=== PATIENT | female | born 1955 | race Caucasian/White ===

== ENCOUNTER 2021-05-15 00:18 | Emergency (ER) | payer OTHER ==
--- NOTE | 2021-05-15 00:27 | EDM.PDOC ---
ED HPI GENERAL MEDICAL PROBLEM - General Chief Complaint: Genitourinary Problem Stated Complaint: POSS UTI Time Seen by Provider: 05/15/21 00:32 Source of Information: Reports: Patient, Family (spouse) History Limitations: Reports: No Limitations - History of Present Illness INITIAL COMMENTS - FREE TEXT/NARRATIVE: 65-year-old female presents to the ED with acute onset of lower urinary tract infection. Continues to have dysuria urgency and frequency. She has a component of terminal dysuria. She has not seen any gross hematuria. She cannot remember the last time she had a urinary tract infection. She states she did feel some sense of urgency over the last 2 to 3 days but no dysuria until the last 12 hours. Unable to sleep due to the continuous irritation. She denie s any back or flank pain. Denies any nausea vomiting or fever. Onset: Sudden Onset Date: 05/14/21 Onset Time: 16:00 Duration: Hour(s):, Getting Worse, Waxing/Waning (Constant feeling of need to void with urgency but every 30 to 40 minutes.) Location: Reports: Abdomen (Lower abdominal pressure discomfort with urinary frequency) Quality: Reports: Ache, Pressure Severity: Moderate Improves with: Reports: None Worsens with: Reports: Other (Terminal dysuria at the end of voiding.) Context: Reports: Other (Spontaneous occurrence). Denies: Activity, Exercise, Lifting, Sick Contact, Trauma Associated Symptoms: Reports: No Other Symptoms. 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: Other (see below) Bladder Pain Score (Numeric/FACES): 6 - Related Data Allergies Allergy/AdvReac Type Severity Reaction Status Date / Time codeine Allergy Vomiting Verified 05/15/21 00:32 Sulfa (Sulfonamide Allergy Rash Verified 05/15/21 00:32 Antibiotics) Home Meds: Home Meds levoFLOXacin [Levaquin] 750 mg PO DAILY #7 tab 05/15/21 [Rx] Past Medical History Musculoskeletal History: Reports: Osteoarthritis - Past Surgical History Musculoskeletal Surgical History: Reports: Knee Replacement, Shoulder Replacement Social & Family History - Living Situation & Occupation Living situation: Reports: Occupation: Retired ED ROS GENERAL - Review of Systems Review Of Systems: See Below Constitutional: Denies: Fever, Chills, Malaise, Weakness, Fatigue, Decreased Appetite, Weight Loss HEENT: Reports: Glasses Respiratory: Reports: No Symptoms Cardiovascular: Reports: No Symptoms Endocrine: Reports: No Symptoms GI/Abdominal: Reports: Abdominal Pain (Prepubic abdominal pressure discomfort.) : Reports: Dysuria, Frequency, Urgency (Urgency over the last 3 days), Other (Has terminal dysuria.) Musculoskeletal: Reports: Neck Pain, Shoulder Pain, Back Pain Skin: Reports: No Symptoms Neurological: Reports: No Symptoms Psychiatric: Reports: No Symptoms Hematologic/Lymphatic: Reports: No Symptoms Immunologic: Reports: No Symptoms ED EXAM, RENAL/ - Physical Exam Exam: See Below Exam Limited By: No Limitations General Appearance: Alert, WD/WN, No Apparent Distress, Other (Temperature is 36.2 degrees. Heart rate 91 and sinus. Respiratory is 18 with O2 sats of 95% room air BP 148/95) Eye Exam: Bilateral Eye: Normal Inspection, PERRL (No scleral icterus or blepharal pallor.) Throat/Mouth: Normal Inspection, Normal Lips, Normal Teeth, Normal Oropharynx GI/Abdominal: Normal Bowel Sounds, Soft, Non-Tender, No Organomegaly, No Distention, No Mass, Pelvis Stable Back Exam: Normal Inspection, Full Range of Motion. No: CVA Tenderness (L), CVA Tenderness (R) Extremities: Normal Inspection, Normal Range of Motion, Non-Tender, No Pedal Edema Neurological: Alert, Oriented, CN II-XII Intact, Normal Cognition Psychiatric: Normal Affect, Normal Mood Skin Exam: Warm, Dry, Intact, Normal Color, No Rash Course - Vital Signs Last Recorded V/S: Last Vital Signs Temp 36.2 C 05/15/21 00:30 Pulse 91 05/15/21 00:30 Resp 18 05/15/21 00:30 BP 148/95 H 05/15/21 00:30 Pulse Ox 94 L 05/15/21 00:30 - Orders/Labs/Meds Orders: Active Orders 24 hr Category Date Time Status CULTURE URINE [MREF] Stat Lab 05/15/21 00:34 Received Labs: Laboratory Tests 05/15/21 Range/Units 00:34 Urine Color Yellow (Yellow) Urine Appearance Cloudy H (Clear) Urine pH 6.5 (5.0-8.0) Ur Specific [place] 1.020 (1.005-1.030) Urine Protein 2+ H (Negative) Urine Glucose (UA) Negative (Negative) Urine Ketones Negative (Negative) Urine Occult Blood 3+ H (Negative) Urine Nitrite Negative (Negative) Urine Bilirubin Negative (Negative) Urine Urobilinogen 0.2 (0.2-1.0) Ur Leukocyte Esterase 2+ H (Negative) Urine RBC >100 H (0-5) /hpf Urine WBC 30-40 H (0-5) /hpf Ur Squamous Epith Cells 0-5 (0-5) /hpf Urine Bacteria Few (FEW) /hpf Urine Mucus Not seen (FEW) /hpf Meds: Medications Discontinued Medications Generic Name Dose Route Start Last Admin Trade Name Freq PRN Reason Stop Dose Admin Levofloxacin 500 mg 05/15/21 00:38 05/15/21 00:56 Levofloxacin 250 Mg Tab PO 05/15/21 00:39 500 mg ONETIME ONE Administration Phenazopyridine HCl 95 mg 05/15/21 00:38 05/15/21 00:56 Phenazopyridine 95 Mg Tab PO 05/15/21 00:39 95 mg ONETIME ONE Administration - Radiology Interpretation Free Text/Narrative:: 65-year-old female presents to the ED in the wee hours of the morning with acute onset of dysuria urgency and frequency. She believes she has had some urgency to void over the last 2 to 3 days. No associated development of back pain fever or chills. She cannot member the last time she had a urinary tract infection. Benign abdominal examination. Plan Pyridium 95 mg p.o. now and repeat in 6 hours. Levaquin 500 mg from the ED tonight. She will use the [employer] to obtain for the Levaquin dosages of 750 mg once daily for 7 days. Follow-up is required if not markedly improved in 24 to 36 hours time. Currently on vacation and residing in my door at this time. He will be traveling back to [place], [place]. - Re-Assessments/Exams Free Text/Narrative Re-Assessment/Exam: 05/15/21 00:51 Urinalysis shows 2+ proteinuria 3+ occult blood 2+ leukocyte esterase with greater than 100 red blood cells per high-power field and 30-40 white blood cells [place] per per high-power field. Urine culture ordered. Departure - Departure Time of Disposition: 00:48 Disposition: Home, Self-Care 01 Condition: Fair Clinical Impression: Lower urinary tract infection, acute - Discharge Information *PRESCRIPTION DRUG MONITORING PROGRAM REVIEWED*: Not Applicable *COPY OF PRESCRIPTION DRUG MONITORING REPORT IN PATIENT DEENA: Not Applicable Prescriptions: levoFLOXacin [Levaquin] 750 mg PO DAILY #7 tab Instructions: Urinary Tract Infection, Adult, [id number] Referrals: PCP,Not In Area [Primary Care Provider] - Forms: ED Department Discharge Additional Instructions: Evaluation in the emergency room this morning in regards to acute onset of lower urinary tract infection with dysuria urgency and frequency. Urgency to void has been appreciated perhaps for the last 2 to 3 days. No signs of kidney infection at this time. Treatment will be Pyridium 95 mg given in the ED with first dose of antibiotic Levaquin 500 mg orally. You may repeat the high radium in 6 to 8 hours time to relieve urinary frequency and urgency to void. You will need to take 7 more tablets of Levaquin 750 mg once daily for the next 7 days with the next tablet due tomorrow night at bedtime. Follow-up required if not markedly improved in 24 to 36 hours time. Sepsis Event Note (ED) - Focused Exam Vital Signs: Vital Signs Temp Pulse Resp BP Pulse Ox 05/15/21 00:30 36.2 C 91 18 148/95 H 94 L - My Orders Last 24 Hours: My Active Orders 05/15/21 00:34 CULTURE URINE [MREF] Stat - Assessment/Plan Last 24 Hours: My Active Orders 05/15/21 00:34 CULTURE URINE [MREF] Stat
[2021-05-15] MEDS ORDERED: Phenazopyridine 95 MG Tab PO ONE (00:38)
[2021-05-15] MEDS ORDERED: Levofloxacin 250 MG Tab PO ONE (00:38)
== END 2021-05-15 01:06 | disposition home or self-care (01) ==
LOC: JD.ED 00:18
DX: N39.0 Urinary tract infection, site not specified (principal); Z88.5 Allergy status to narcotic agent; Z88.2 Allergy status to sulfonamides
CPT/HCPCS: 81001; 87086; 87088; 87186; 99283; A9270